=== PATIENT | female | born 1985 | race Two or more races ===

== ENCOUNTER 2018-06-30 22:42 | Inpatient (IN) | payer MEDICAID ==
[2018-06-30 23:40] LABS: ADD MAN DIFF? NO
[2018-06-30 23:41] LABS: WHITE BLOOD COUNT 6.4 10^3/ul (4.8-10.8)
[2018-06-30 23:41] LABS: BASOPHILS % 0.3 % (0.0-2.0); EOSINOPHILS % 0.6 % (0.0-7.0); HEMATOCRIT 40.5 % (37.0-47.0); HEMOGLOBIN 13.2 g/dl (12.0-16.0); LYMPHOCYTES # 2.4 10^3/ul (0.8-2.9); MEAN CORPUSCULAR HEMOGLOBIN 26.5 pg (29.0-33.0); MEAN CORPUSCULAR HGB CONC 32.6 g/dl (32.0-37.0); MEAN CORPUSCULAR VOLUME 81.2 fl (82.0-101.0); MEAN PLATELET VOLUME 11.6 fl (7.4-10.4); MONOCYTE # 0.6 10^3/ul (0.3-0.9); MONOCYTES % 9.1 % (0.0-11.0); NEUTROPHIL # 3.3 10^3/ul (1.6-7.5); NEUTROPHILS % 51.5 % (39.0-77.0); PLATELET COUNT 201 10^3/UL (140-415); RED BLOOD COUNT 4.99 10^6/ul (4.20-5.40); RED CELL DISTRIBUTION WIDTH 15.9 % (11.5-14.5)
[2018-06-30 23:59] LABS: ALBUMIN 3.5 g/dl (3.3-4.9); ALBUMIN/GLOBULIN RATIO 1.06; ALKALINE PHOSPHATASE 195 IU/L (42-121); ASPARTATE AMINO TRANSFERASE 14 IU/L (15-46); BILIRUBIN,INDIRECT 0.2 mg/dl (0-1.1); BILIRUBIN,TOTAL 0.2 mg/dl (0.2-1.3); BLOOD UREA NITROGEN 8 mg/dl (7-20); CALCIUM 9.9 mg/dl (8.4-10.2); CARBON DIOXIDE 23 mmol/L (21-31); CREATININE 0.76 mg/dl (0.44-1.00); Estimated GFR > 60 mL/min (>60); GLUCOSE 147 mg/dl (70-220); POTASSIUM 4.1 mmol/L (3.5-5.1); TOTAL PROTEIN 6.8 g/dl (6.1-8.1); URIC ACID 2.8 mg/dl (3.1-7.9)
[2018-07-01 00:03] LABS: ALANINE AMINOTRANSFERASE < 6 IU/L (13-69); ANION GAP 6 (5-13); CHLORIDE 106 mmol/L (97-110); SODIUM 135 mmol/L (135-144)
[2018-07-01 00:56] LABS: ADD UMIC YES; UR ASCORBIC ACID NEGATIVE (NEGATIVE); UR BACTERIA MANY /HPF (NONE SEEN); UR BILIRUBIN (Dip) NEGATIVE (NEGATIVE); UR BLOOD (Dip) 1+ mg/dL (NEGATIVE); UR CLARITY CLOUDY (CLEAR); UR COLOR YELLOW (YELLOW); UR GLUCOSE (Dip) 3+ mg/dL (NEGATIVE); UR KETONES (Dip) TRACE mg/dL (NEGATIVE); UR LEUKOCYTE ESTERASE (Dip) NEGATIVE Leu/ul (NEGATIVE); UR MUCUS FEW /HPF (NONE SEEN); UR NITRITE (Dip) NEGATIVE (NEGATIVE); UR RBC 1 /HPF (0-5); UR SPECIFIC GRAVITY (Dip) 1.014 (1.003-1.030); UR SQUAMOUS EPITHELIAL CELL MODERATE /HPF (FEW); UR TOTAL PROTEIN (Dip) 1+ mg/dl (NEGATIVE); UR UROBILINOGEN (Dip) NEGATIVE (NEGATIVE); UR WBC 1 /HPF (0-5)
[2018-07-01] MEDS ORDERED: LACTATED RINGER'S 1,000 ML IV (01:04)
[2018-07-01] MEDS ORDERED: CARBOPROST 250 MCG INJ IM ×2 (01:30→22:30)
[2018-07-01] MEDS ORDERED: IBUPROFEN 600 MG TAB PO (01:30)
[2018-07-01] MEDS ORDERED: MISOPROSTOL 200 MCG TAB PR ×2 (01:30→22:30)
[2018-07-01] MEDS ORDERED: OXYTOCIN 30 UNITS/LR 500 ML IV ×3 (01:30→22:30)
[2018-07-01] MEDS ORDERED: METHYLERGONOVINE 0.2 MG INJ IM ×2 (01:30→22:30)
[2018-07-01] MEDS ORDERED: BUTORPHANOL 2 MG INJ IV (01:30)
[2018-07-01] MEDS ORDERED: LIDOCAINE 1% (MPF) 30 ML INJ INJ (01:30)
[2018-07-01 01:38] LABS: INR 0.87; PROTIME 11.9 Sec (11.9-14.9); PT RATIO 0.9
[2018-07-01 01:39] LABS: PARTIAL THROMBOPLASTIN TIME 25.3 Sec (23.0-35.0)
[2018-07-01] MEDS: LACTATED RINGER'S 1,000 ML IV ×4 (02:34→23:04)
[2018-07-01 02:45] LABS: HEPATITIS B SURFACE ANTIGEN NEGATIVE (NEGATIVE)
[2018-07-01] MEDS: OXYTOCIN 30 UNITS/LR 500 ML IV ×2 (03:24→19:14)
[2018-07-01 09:28] LABS: HEPATITIS B SURFACE ANTIGEN NEGATIVE (NEGATIVE)
[2018-07-01] MEDS ORDERED: FENTAnyl 2MCG/ML-ROPIV 0.2% 100 ML (11:24)
[2018-07-01] MEDS ORDERED: NALOXONE (0.4 MG/ML) INJ IV (11:30)
[2018-07-01] MEDS ORDERED: ONDANSETRON 4 MG INJ IV ×2 (11:30→22:30)
[2018-07-01] MEDS ORDERED: DIPHENHYDRAMINE 50 MG INJ IV ×2 (11:30→22:30)
[2018-07-01] MEDS ORDERED: FENTAnyl 2MCG/ML-ROPIV 0.2% 100 ML BAG EPI (11:30)
[2018-07-01] MEDS ORDERED: FENTAnyl 50 MCG/ML VIAL (16:49)
[2018-07-01] MEDS ORDERED: LIDOCAINE 1.5%/EPI MPF (SDV) 30 ML VIAL (16:49)
[2018-07-01] MEDS ORDERED: DEXAMETHASONE 4 MG/ML 1 ML INJ (16:51)
[2018-07-01] MEDS ORDERED: morphine SULFATE/PF (10 MG/10 ML) INJ (17:19)
[2018-07-01] MEDS ORDERED: EPHEDrine 25 MG/5 ML SYG (17:28)
[2018-07-01] MEDS: CEFAZOLIN 2 GM/50 ML (PMX) 50 ML IVPB (17:40)
[2018-07-01 17:46] LABS: CBV Base Excess -10.4 mmol/L; CBV COHb 0 %; CBV Oxygen Sat 35.3 mmHG; CBV Total Hemglobin 19.1 g/dl; Cord Blood Venous AADO2 47.8 mmHg; Cord Blood Venous pO2 22.9 mmHG (15.0-45.0); Fraction OxyHgb Cord Venous 34.2 %; MODE ROOM AIR; MetHgb Cord Venous 3.2 %; Sample Type PLR; Site CORD
[2018-07-01 19:18] LABS: RAPID PLASMA REAGIN NONREACTIVE (NR)
[2018-07-01] MEDS ORDERED: MEPERIDINE 25 MG INJ (19:21)
[2018-07-01] MEDS: MEPERIDINE 25 MG INJ IV (19:26)
[2018-07-01] MEDS: MINERAL OIL LIGHT 10 ML VIAL TOP (19:41)
[2018-07-01] MEDS: MAGNESIUM SULFATE 4 GM/100 ML 100 ML IV (20:53)
[2018-07-01] MEDS ORDERED: CA GLUCONATE (GM) 10% 10ML INJ IV (21:00)
[2018-07-01] MEDS: MAGNESIUM SULFATE 20 GM/500 ML 500 ML IV (21:19)
[2018-07-01] MEDS ORDERED: CEFAZOLIN 2 GM/50 ML (PMX) 50 ML IVPB ×2 (22:00→23:30)
[2018-07-01] MEDS ORDERED: OXYCODONE/ACETAMINOPHEN (5/325) TAB PO ×2 (22:30)
[2018-07-01] MEDS ORDERED: ZOLPIDEM 5 MG TAB PO (22:30)
[2018-07-01] MEDS ORDERED: LANOLIN HPA 1 PKT TOP (22:30)
[2018-07-01] MEDS: CLINDAMYCIN 600 MG/D5W (PMX) 50 ML IVPB (23:49)
[2018-07-02 01:38] LABS: MAGNESIUM 3.7 mg/dl (1.7-2.5)
[2018-07-02] MEDS: CEFAZOLIN 2 GM/50 ML (PMX) 50 ML IVPB ×2 (02:39→12:12)
[2018-07-02] MEDS: CLINDAMYCIN 600 MG/D5W (PMX) 50 ML IVPB ×3 (05:25→17:34)
[2018-07-02] MEDS: IBUPROFEN 600 MG TAB PO ×5 (05:38→23:44)
[2018-07-02] MEDS: SENNA/DOCUSATE NA (8.6MG/50MG) TAB PO ×2 (08:28→20:58)
[2018-07-02 08:29] LABS: ADD MAN DIFF? NO
[2018-07-02 08:39] LABS: WHITE BLOOD COUNT 19.9 10^3/ul (4.8-10.8)
[2018-07-02 08:39] LABS: BASOPHILS % 0.1 % (0.0-2.0); HEMATOCRIT 36.3 % (37.0-47.0); HEMOGLOBIN 11.7 g/dl (12.0-16.0); LYMPHOCYTES # 1.5 10^3/ul (0.8-2.9); LYMPHOCYTES % 7.7 % (15.0-51.0); MEAN CORPUSCULAR HEMOGLOBIN 26.1 pg (29.0-33.0); MEAN CORPUSCULAR HGB CONC 32.2 g/dl (32.0-37.0); MEAN PLATELET VOLUME 12.3 fl (7.4-10.4); MONOCYTE # 1.3 10^3/ul (0.3-0.9); MONOCYTES % 6.7 % (0.0-11.0); NEUTROPHILS % 85.1 % (39.0-77.0); PLATELET COUNT 202 10^3/UL (140-415); RED BLOOD COUNT 4.48 10^6/ul (4.20-5.40); RED CELL DISTRIBUTION WIDTH 16.2 % (11.5-14.5)
[2018-07-02 08:52] LABS: MAGNESIUM 4.3 mg/dl (1.7-2.5)
[2018-07-02] MEDS: MAGNESIUM SULFATE 20 GM/500 ML 500 ML IV (11:46)
[2018-07-02] MEDS: LACTATED RINGER'S 1,000 ML IV (11:47)
[2018-07-02 12:37] LABS: MAGNESIUM 5.2 mg/dl (1.7-2.5)
[2018-07-02] MEDS: CEFAZOLIN 2 GM in SOD CHLORIDE 0.9% 50 ML IVPB (23:42)
[2018-07-03] MEDS: CLINDAMYCIN 600 MG/D5W (PMX) 50 ML IVPB ×4 (00:28→17:56)
[2018-07-03] MEDS: IBUPROFEN 600 MG TAB PO ×3 (05:30→17:57)
[2018-07-03] MEDS: CEFAZOLIN 2 GM in SOD CHLORIDE 0.9% 50 ML IVPB ×3 (06:33→21:47)
[2018-07-03] MEDS: SENNA/DOCUSATE NA (8.6MG/50MG) TAB PO ×2 (10:12→21:27)
[2018-07-03 13:15] LABS: ADD MAN DIFF? NO
[2018-07-03 13:16] LABS: WHITE BLOOD COUNT 13.1 10^3/ul (4.8-10.8)
[2018-07-03 13:16] LABS: BASOPHILS % 0.2 % (0.0-2.0); EOSINOPHILS % 0.2 % (0.0-7.0); HEMATOCRIT 31.7 % (37.0-47.0); HEMOGLOBIN 10.4 g/dl (12.0-16.0); LYMPHOCYTES # 1.2 10^3/ul (0.8-2.9); LYMPHOCYTES % 9.4 % (15.0-51.0); MEAN CORPUSCULAR HEMOGLOBIN 26.8 pg (29.0-33.0); MEAN CORPUSCULAR HGB CONC 32.8 g/dl (32.0-37.0); MEAN CORPUSCULAR VOLUME 81.7 fl (82.0-101.0); MEAN PLATELET VOLUME 11.3 fl (7.4-10.4); MONOCYTE # 0.8 10^3/ul (0.3-0.9); MONOCYTES % 6.3 % (0.0-11.0); NEUTROPHIL # 10.9 10^3/ul (1.6-7.5); NEUTROPHILS % 83.1 % (39.0-77.0); PLATELET COUNT 195 10^3/UL (140-415); RED BLOOD COUNT 3.88 10^6/ul (4.20-5.40); RED CELL DISTRIBUTION WIDTH 16.3 % (11.5-14.5)
[2018-07-04] MEDS: IBUPROFEN 600 MG TAB PO ×4 (00:23→17:47)
[2018-07-04] MEDS: CLINDAMYCIN 600 MG/D5W (PMX) 50 ML IVPB ×2 (00:23→05:56)
[2018-07-04] MEDS: DIPHTH/TET/ACEL PERTUSS (ADULT) 0.5 ML VIAL IM* (09:00)
[2018-07-04] MEDS: SENNA/DOCUSATE NA (8.6MG/50MG) TAB PO ×2 (10:15→21:17)
[2018-07-05] MEDS: IBUPROFEN 600 MG TAB PO ×4 (00:40→18:08)
[2018-07-05] MEDS: SENNA/DOCUSATE NA (8.6MG/50MG) TAB PO (12:04)
== END 2018-07-05 18:25 | disposition home or self-care (01) | DRG 788 ==
LOC: OBT 22:42 → L-D 22:42 → PP1 07-01 22:19
PROC: 10D00Z1 Extraction of Products of Conception, Low, Open Approach (ICD-10-PCS; principal; 2018-07-01 17:00)
DX: O13.4 Gestational [pregnancy-induced] hypertension without significant proteinuria, complicating childbirth (principal); O76 Abnormality in fetal heart rate and rhythm complicating labor and delivery; O69.0XX0 Labor and delivery complicated by prolapse of cord, not applicable or unspecified; Z3A.37 37 weeks gestation of pregnancy; Z37.0 Single live birth
CPT/HCPCS: 36600; 62319; 71045; 76815; 76818; 80053; 81001; 82803; 83735; 84560; 85025; 85610; 85730; 86592; 86850; 86900; 86901; 87340; 99464